=== PATIENT | male | born 1980 | race Caucasian/White ===

== ENCOUNTER 2018-04-28 20:13 | Emergency (ER) | payer MEDICAID ==
[~2018-04-28] VITALS: Ht 185.4 cm; Wt 79.4 kg
[2018-04-28 20:37] VITALS: BP 138/87
[2018-04-28 21:20] LABS: APPEARANCE,URINE CLEAR; BILIRUBIN, URINE NEGATIVE (NEGATIVE); GLUCOSE, URINE (UA) NEGATIVE (NEGATIVE); KETONES,URINE NEGATIVE (NEGATIVE); LEUKOCYTE ESTERASE ,URINE 1+ (NEGATIVE); NITRITE,URINE NEGATIVE (NEGATIVE); PH,URINE 7 (4.5-8.0); PROTEIN,URINE NEGATIVE (NEGATIVE); UROBILINOGEN,URINE 1 MG/DL (0.0-1.0)
[2018-04-28 21:21] LABS: COLOR,URINE YELLOW
[2018-04-28] MEDS ORDERED: ZITHROMAX250 MG ORAL (21:54)
[2018-04-28] MEDS ORDERED: ALBUTEROL SULF8.5 GM INH (21:54)
[2018-04-28] MEDS ORDERED: ROBITUSSIN COU1 EACH PO (21:54)
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
[2018-04-28 22:40] VITALS: BP 130/86
--- NOTE | 2018-04-29 09:12 | Diagnostic Imaging Report ---
Indication: Cough Technique: One view of the chest Comparison: none Findings: Lungs and pleural spaces are clear. The heart size is normal. There is spinal fusion hardware in the lower thoracic and upper lumbar spine. There is old healed fracture deformity of the right clavicle. Impression: No acute process
== END 2018-04-28 22:00 | disposition home or self-care (01) ==
LOC: EMR 21:00
DX: J45.909 Unspecified asthma, uncomplicated (principal); F17.200 Nicotine dependence, unspecified, uncomplicated; J32.9 Chronic sinusitis, unspecified; R51 Headache; H92.09 Otalgia, unspecified ear; R09.82 Postnasal drip; M54.9 Dorsalgia, unspecified
CPT/HCPCS: 71045; 81003; 99283